=== PATIENT | female | born 1985 | race Caucasian/White ===

== ENCOUNTER 2021-08-08 11:12 | Observation (INO) ==
[2021-08-08] MEDS ORDERED: Ipratropium/Albuterol Neb 3 ML IH ONE (11:23)
[2021-08-08 12:01] LABS: Basophils % 0.6 %; Eosinophils # 0.3 K/mcL (0.0-0.6); Eosinophils % 4.5 %; Hemoglobin 15.5 g/dL (11.5-15.4); Immature Granulocytes % 0.6 % (0-4); Lymphocytes # 1.8 K/mcL (0.6-4.6); Lymphocytes % 26.7 %; Mean Corpuscular HGB Conc 33.7 g/dL (31.6-35.5); Mean Corpuscular Hemoglobin 30.3 pg (28.0-33.3); Mean Corpuscular Volume 89.8 fL (83.0-100.0); Mean Platelet Volume 9.7 fL (9.4-12.4); Monocytes # 0.6 K/mcL (0.0-1.3); Monocytes % 8.3 %; Platelet Count 258 K/mcL (140-400); Red Blood Count 5.12 M/mcL (3.82-4.97); Red Cell Distribution Width 12.3 % (11.5-14.5); Segmented Neutrophils % 59.3 %; White Blood Count 6.7 K/mcL (4.3-11.1)
[2021-08-08] MEDS ORDERED: 0.9 % Sodium Chloride 1,000 ML IV ONE (12:10)
[2021-08-08 12:23] LABS: Alanine Aminotransferase 75 Units/L (7-52); Albumin/Globulin Ratio 1.2 (1.1-2.2); Alkaline Phosphatase 86 Units/L (34-104); Aspartate Amino Transferase 50 Units/L (13-39); BUN/Creatinine Ratio 17 (6-26); Bilirubin,Direct 0.2 mg/dL (0.0-0.2); Bilirubin,Indirect 0.4 mg/dL (0.0-1.0); Bilirubin,Total 0.6 mg/dL (0.3-1.0); Blood Urea Nitrogen 9 mg/dL (6-20); Calcium 9.4 mg/dL (8.6-10.3); Carbon Dioxide 28 mEq/L (23-29); Chloride 98 mEq/L (98-107); Globulin 3.4 g/dL (2.4-3.5); Glucose 269 mg/dL (70-105); Osmolality,Calculated 286 (280-300); Sodium 134 mEq/L (136-145); Total Protein 7.4 g/dL (6.4-8.9); Troponin I < 0.03 ng/mL (< 0.04); eGFR For African Americans > 60 (> 60); eGFR For Non-African Americans > 60 (> 60)
[2021-08-08 12:52] LABS: Adenovirus Not Detected (Not Detect); Bordetella Pertussis Not Detected (Not Detect); Chlamydophila pneumoniae Not Detected (Not Detect); Coronavirus 229E Not Detected (Not Detect); Coronavirus HKU1 Not Detected (Not Detect); Coronavirus NL63 Not Detected (Not Detect); Coronavirus OC43 Not Detected (Not Detect); Human Metapneumovirus Not Detected (Not Detect); Human Rhinovirus/Enterovirus DETECTED (Not Detect); Influenza A Subtype 2009 H1 Not Detected (Not Detect); Influenza B Not Detected (Not Detect); Mycoplasma pneumoniae Not Detected (Not Detect); Parainfluenza Virus 1 Not Detected (Not Detect); Parainfluenza Virus 2 Not Detected (Not Detect); Parainfluenza Virus 3 Not Detected (Not Detect); Parainfluenza Virus 4 Not Detected (Not Detect); Respiratory Syncytial Virus Not Detected (Not Detect); SARS-CoV-2 Not Detected (Not Detect)
[2021-08-08] MEDS ORDERED: Ketorolac 30 MG/ML VIAL IVP ONE (12:52)
[2021-08-08] MEDS ORDERED: Ondansetron 4 MG/2 ML VIAL IVP ONE (12:52)
[2021-08-08] MEDS ORDERED: Benzonatate 100 MG CAPSULE PO PRN (17:08)
[2021-08-08] MEDS ORDERED: Ibuprofen 600 MG TABLET PO PRN (17:08)
[2021-08-08] MEDS ORDERED: Melatonin 3 MG TABLET PO PRN (17:09)
[2021-08-08] MEDS ORDERED: Ondansetron 4 MG/2 ML VIAL IVP PRN (17:09)
[2021-08-08] MEDS ORDERED: Naloxone 0.4 MG/ML INJ IVP PRN (17:09)
[2021-08-08] MEDS ORDERED: *HR* Dextrose 50 % in Water (Syg) 50 ML SYRINGE IVP PRN (17:11)
[2021-08-08] MEDS ORDERED: Saline Nasal Spray 44 ML BOTTLE NS PRN (17:11)
[2021-08-08] MEDS ORDERED: D5% in Water 1,000 ML IVC PRN (17:11)
[2021-08-08] MEDS ORDERED: Dextrose Gel 15 GM/37.5 ML TUBE PO PRN ×2 (17:11)
[2021-08-08] MEDS ORDERED: Ipratropium/Albuterol Neb 3 ML IH SCH (17:15)
[2021-08-08] MEDS ORDERED: Chloraseptic Spray 177 ML BOTTLE MM PRN (17:27)
[2021-08-08] MEDS: Levalbuterol Neb 0.63 MG/3 ML IH SCH ×2 (17:30→22:41)
[2021-08-08] MEDS ORDERED: Acetaminophen/Aspirin/Caffeine TABLET PO PRN (17:39)
[2021-08-08] MEDS: MethylPREDNISolone 40 MG/ML VIAL IVP SCH (18:32)
[2021-08-08] MEDS: Nicotine 21 MG PATCH.TD24 TD SCH (18:33)
[2021-08-08] MEDS: Ipratropium Neb 0.5 MG NEBULIZER IH PRN (20:30)
[2021-08-08] MEDS: Sucralfate 1 GM TABLET PO SCH (20:40)
[2021-08-08] MEDS ORDERED: Insulin LISPRO 300 UNITS/3 ML VIAL SUBQ SCH (21:00)
[2021-08-09] MEDS: Ipratropium Neb 0.5 MG NEBULIZER IH PRN (01:49)
[2021-08-09 02:06] LABS: BUN/Creatinine Ratio 22 (6-26); Blood Urea Nitrogen 13 mg/dL (6-20); Calcium 9.3 mg/dL (8.6-10.3); Carbon Dioxide 25 mEq/L (23-29); Chloride 99 mEq/L (98-107); Glucose 389 mg/dL (70-105); Magnesium 1.8 mg/dL (1.6-2.6); Osmolality,Calculated 292 (280-300); Potassium 4.9 mEq/L (3.5-5.1); Sodium 133 mEq/L (136-145); eGFR For African Americans > 60 (> 60); eGFR For Non-African Americans > 60 (> 60)
[2021-08-09 03:07] LABS: Estimated Average Glucose 232 mg/dl; Hemoglobin A1C 9.7 %
[2021-08-09 03:16] VITALS: PULSE 54
[2021-08-09] MEDS: Levalbuterol Neb 0.63 MG/3 ML IH SCH ×2 (04:22→10:08)
[2021-08-09] MEDS: MethylPREDNISolone 40 MG/ML VIAL IVP SCH (05:08)
[2021-08-09 07:20] VITALS: BP 106/63; TEMP 98.4
[2021-08-09] MEDS: Sucralfate 1 GM TABLET PO SCH (07:46)
[2021-08-09] MEDS: Insulin LISPRO 300 UNITS/3 ML VIAL SUBQ SCH ×2 (07:50→13:02)
[2021-08-09] MEDS ORDERED: Fluticasone Propionate Nasal 50 MCG/SPRAY BOTTLE NS SCH (09:00)
[2021-08-09] MEDS ORDERED: Aspirin Enteric Coated 81 MG Tablet PO SCH (09:00)
[2021-08-09 10:13] VITALS: O2SAT 92
[2021-08-09] MEDS: Nicotine 21 MG PATCH.TD24 TD SCH (10:25)
== END 2021-08-09 13:36 | disposition left against medical advice (07) ==
LOC: 3NENU 11:12 → EMEROOARM 11:12 → SUATTDRO 17:11 → 3NENU 18:06
PROVIDERS: ADMIT Internal Medicine; ATTEND Hospitalist

== ENCOUNTER 2021-08-23 23:21 | Inpatient (IN) ==
[2021-08-23] MEDS: *HR* Dextrose 50 % in Water (Syg) 50 ML SYRINGE IVP ONE ×2 (23:45→23:46)
[2021-08-23] MEDS: D10% in Water 500 ML IVC SCH (23:46)
[2021-08-24 00:07] LABS: VBG HCO3 27 mEq/L (21-27); VBG PCO2 46 mmHg (41-51); VBG PH 7.37 pH Units (7.32-7.42); VBG PO2 71 mmHg (25-50)
[2021-08-24] MEDS: 0.9 % Sodium Chloride 1,000 ML IVC ONE ×2 (00:08→00:39)
[2021-08-24 00:16] LABS: ABG Base Excess 0 mEq/L (-2 to 3); ABG HCO3 23 mEq/L (21-27); ABG Oxygen Saturation 92 % (95-98); ABG PCO2 34 mmHg (35-45); ABG PH 7.44 pH Units (7.32-7.45); ABG PO2 59 mmHg (85-104); ABG TCO2 24 mEq/L (20-26)
[2021-08-24 00:19] LABS: Basophils # 0.1 K/mcL (0.0-0.2); Basophils % 0.6 %; Eosinophils # 0.3 K/mcL (0.0-0.6); Eosinophils % 4.1 %; Hematocrit 50.1 % (35.3-44.9); Hemoglobin 16.7 g/dL (11.5-15.4); Immature Granulocytes % 0.6 % (0-4); Lymphocytes # 2.6 K/mcL (0.6-4.6); Mean Corpuscular HGB Conc 33.3 g/dL (31.6-35.5); Mean Corpuscular Volume 90.1 fL (83.0-100.0); Mean Platelet Volume 9.4 fL (9.4-12.4); Monocytes # 0.2 K/mcL (0.0-1.3); Monocytes % 2.9 %; Platelet Count 328 K/mcL (140-400); Red Blood Count 5.56 M/mcL (3.82-4.97); Red Cell Distribution Width 12.7 % (11.5-14.5); Segmented Neutrophils % 60.8 %; White Blood Count 8.3 K/mcL (4.3-11.1)
[2021-08-24] MEDS ORDERED: *HR* Dextrose 50 % in Water (Syg) 50 ML SYRINGE IVP ONE (00:19)
[2021-08-24] MEDS ORDERED: *HR* Dextrose 50 % in Water (Syg) 50 ML SYRINGE ONE ×6 (00:21→02:16)
[2021-08-24] MEDS: *HR* Dextrose 50 % in Water (Syg) 50 ML SYRINGE IVP ONE ×2 (00:41→01:12)
[2021-08-24] MEDS ORDERED: 0.9 % Sodium Chloride 1,000 ML IVC ONE (00:45)
[2021-08-24 01:01] LABS: Acetaminophen < 10 mcg/mL (10-20); Alanine Aminotransferase 85 Units/L (7-52); Albumin/Globulin Ratio 1.1 (1.1-2.2); Alkaline Phosphatase 78 Units/L (34-104); Aspartate Amino Transferase 38 Units/L (13-39); BUN/Creatinine Ratio 14 (6-26); Bilirubin,Total 0.7 mg/dL (0.3-1.0); Blood Urea Nitrogen 8 mg/dL (6-20); Calcium 9.5 mg/dL (8.6-10.3); Carbon Dioxide 26 mEq/L (23-29); Chloride 102 mEq/L (98-107); Creatine Kinase 73 Units/L (30-223); Ethanol < 10 mg/dL (Less than 10); Globulin 3.7 g/dL (2.4-3.5); Glucose 148 mg/dL (70-105); Magnesium 1.8 mg/dL (1.6-2.6); Osmolality,Calculated 285 (280-300); Potassium 3.5 mEq/L (3.5-5.1); Salicylate < 2.5 mg/dL (15.0-30.0); Sodium 137 mEq/L (136-145); Thyroid Stimulating Hormone 3.586 mcIU/mL (0.340-5.600); Total Protein 7.7 g/dL (6.4-8.9); Troponin I < 0.03 ng/mL (< 0.04); eGFR For African Americans > 60 (> 60); eGFR For Non-African Americans > 60 (> 60)
[2021-08-24 01:26] LABS: ABG Base Excess 0 mEq/L (-2 to 3); ABG HCO3 25 mEq/L (21-27); ABG Oxygen Saturation 78 % (95-98); ABG PCO2 42 mmHg (35-45); ABG PH 7.38 pH Units (7.32-7.45); ABG PO2 43 mmHg (85-104); ABG TCO2 26 mEq/L (20-26)
[2021-08-24] MEDS ORDERED: Naloxone 0.4 MG/ML INJ IVP PRN (01:48)
[2021-08-24] MEDS: D10% in Water 500 ML IVC SCH ×10 (01:58→22:10)
[2021-08-24] MEDS ORDERED: D5% in Water 1,000 ML IVC ONE (02:56)
[2021-08-24] MEDS ORDERED: Ondansetron 4 MG/2 ML VIAL ONE (02:56)
[2021-08-24] MEDS: D5% in Water 1,000 ML IVC SCH ×2 (02:58→06:38)
[2021-08-24] MEDS: Ondansetron 4 MG/2 ML VIAL IVP PRN ×4 (03:08→21:09)
[2021-08-24] MEDS ORDERED: *HR* Dextrose 50 % in Water (Syg) 50 ML SYRINGE IVP STA (03:11)
[2021-08-24] MEDS: *HR* Dextrose 50 % in Water (Syg) 50 ML SYRINGE IVP PRN ×12 (03:48→12:15)
[2021-08-24 04:42] LABS: ABG Base Excess -3 mEq/L (-2 to 3); ABG HCO3 24 mEq/L (21-27); ABG Oxygen Saturation 100 % (95-98); ABG PCO2 48 mmHg (35-45); ABG PH 7.31 pH Units (7.32-7.45); ABG PO2 187 mmHg (85-104); ABG TCO2 26 mEq/L (20-26)
[2021-08-24] MEDS: *HR* Heparin 5,000 UNIT/ML VIAL SQ SCH ×3 (05:52→21:37)
[2021-08-24 06:58] LABS: Bilirubin,Urine Negative (Negative); Blood,Urine Negative (Negative); Clarity,Urine Clear (Clear); Color,Urine Light-Yellow (Yellow); Glucose,Urine (UA) 500 mg/dL (Normal); Ketones,Urine Negative (Negative); Leukocyte Esterase,Urine Negative (Negative); Mucus,Urine Few per lpf (None-Few); Nitrite,Urine Negative (Negative); Protein,Urine Negative (Neg-Trace); RBC,Urine 0-3 per hpf (0-3); Specific Gravity,Urine 1.009 (1.010-1.025); Squamous Epithelial Cell,Urine Few per hpf (None-Few); Urobilinogen,Urine Normal (Normal); WBC,Urine 0-3 per hpf (0-3)
[2021-08-24 10:15] LABS: Hematocrit 48.6 % (35.3-44.9); Hemoglobin 15.7 g/dL (11.5-15.4); Mean Corpuscular HGB Conc 32.3 g/dL (31.6-35.5); Mean Corpuscular Hemoglobin 30.2 pg (28.0-33.3); Mean Corpuscular Volume 93.5 fL (83.0-100.0); Mean Platelet Volume 9.6 fL (9.4-12.4); Platelet Count 269 K/mcL (140-400); Red Cell Distribution Width 13.2 % (11.5-14.5)
[2021-08-24 10:17] LABS: White Blood Count 19.4 K/mcL (4.3-11.1)
[2021-08-24] MEDS ORDERED: *HR* Dextrose 50 % in Water (Vial) 50 ML VIAL IVP PRN (10:30)
[2021-08-24 10:31] LABS: ABG Base Excess -2 mEq/L (-2 to 3); ABG HCO3 22 mEq/L (21-27); ABG Oxygen Saturation 99 % (95-98); ABG PCO2 36 mmHg (35-45); ABG PH 7.39 pH Units (7.32-7.45); ABG PO2 154 mmHg (85-104); ABG TCO2 23 mEq/L (20-26)
[2021-08-24 10:49] LABS: Albumin 3.3 g/dL (3.5-5.7); Albumin/Globulin Ratio 1.1 (1.1-2.2); Bilirubin,Direct 0.2 mg/dL (0.0-0.2); Bilirubin,Indirect 0.6 mg/dL (0.0-1.0); Bilirubin,Total 0.8 mg/dL (0.3-1.0); Calcium 8.1 mg/dL (8.6-10.3); Potassium 4.3 mEq/L (3.5-5.1); Total Protein 6.3 g/dL (6.4-8.9)
[2021-08-24] MEDS ORDERED: Morphine Sulfate 2 MG/ML SYRINGE IVP ONE (21:23)
[2021-08-24 23:29] LABS: Sodium, Urine 50.2 mEq/L
[2021-08-24 23:37] LABS: Amphetamine Screen,Urine Negative ng/mL (Cutoff=1000); Barbiturate Screen,Urine Negative ng/mL (Cutoff=200); Benzodiazepines Screen,Urine Positive ng/mL (Cutoff=200); Cannabinoid Screen,Urine Negative ng/mL (Cutoff = 50); Cocaine Screen,Urine Negative ng/mL (Cutoff= 300); Opiate Screen,Urine Negative ng/mL (Cutoff=300); Phencyclidine Screen,Urine Negative ng/mL (Cutoff=25)
[2021-08-25] MEDS: D10% in Water 500 ML IVC SCH ×3 (00:05→04:07)
[2021-08-25 02:57] LABS: Basophils # 0.1 K/mcL (0.0-0.2); Basophils % 0.6 %; Eosinophils # 0.6 K/mcL (0.0-0.6); Eosinophils % 3.5 %; Hematocrit 44.1 % (35.3-44.9); Hemoglobin 14.5 g/dL (11.5-15.4); Immature Granulocytes % 1.3 % (0-4); Lymphocytes # 3.1 K/mcL (0.6-4.6); Lymphocytes % 19.5 %; Mean Corpuscular HGB Conc 32.9 g/dL (31.6-35.5); Mean Corpuscular Volume 91.1 fL (83.0-100.0); Mean Platelet Volume 9.6 fL (9.4-12.4); Monocytes # 1.1 K/mcL (0.0-1.3); Neutrophils # 10.8 K/mcL (1.6-8.9); Platelet Count 256 K/mcL (140-400); Red Blood Count 4.84 M/mcL (3.82-4.97); Red Cell Distribution Width 13.2 % (11.5-14.5); Segmented Neutrophils % 68.1 %; White Blood Count 15.8 K/mcL (4.3-11.1)
[2021-08-25 04:06] LABS: Albumin 2.9 g/dL (3.5-5.7); Albumin/Globulin Ratio 1.1 (1.1-2.2); Bilirubin,Total 0.7 mg/dL (0.3-1.0); Calcium 7.4 mg/dL (8.6-10.3); Globulin 2.7 g/dL (2.4-3.5); Magnesium 1.2 mg/dL (1.6-2.6); Potassium 3.7 mEq/L (3.5-5.1); Total Protein 5.6 g/dL (6.4-8.9)
[2021-08-25] MEDS ORDERED: D5% in 0.45% NACL 1,000 ML IVC SCH (05:30)
[2021-08-25] MEDS: *HR* Heparin 5,000 UNIT/ML VIAL SQ SCH ×3 (05:35→20:44)
[2021-08-25] MEDS: Calcium Gluconate 1gm/50mL 1 GM/50 ML BAG IVPB SCH ×2 (08:14→09:34)
[2021-08-25] MEDS: Ondansetron 4 MG/2 ML VIAL IVP PRN (09:49)
[2021-08-25 10:53] LABS: Calcium 8.2 mg/dL (8.6-10.3); Potassium 4.2 mEq/L (3.5-5.1)
[2021-08-25] MEDS: Ipratropium/Albuterol Neb 3 ML IH SCH ×3 (11:06→22:58)
[2021-08-25] MEDS ORDERED: Dextrose Gel 15 GM/37.5 ML TUBE PO PRN ×2 (11:10)
[2021-08-25] MEDS ORDERED: *HR* Dextrose 50 % in Water (Syg) 50 ML SYRINGE IVP PRN (11:10)
[2021-08-25] MEDS ORDERED: D5% in Water 1,000 ML IVC PRN (11:10)
[2021-08-25] MEDS: D5% in 0.9% NACL 1,000 ML IVC SCH (12:22)
[2021-08-25 17:07] LABS: Calcium 8.5 mg/dL (8.6-10.3); Potassium 4.7 mEq/L (3.5-5.1)
[2021-08-25] MEDS ORDERED: 0.9 % Sodium Chloride 1,000 ML IVC ONE (19:17)
[2021-08-25] MEDS ORDERED: Perflutren Lipid Microsphere 1.3 ML in 0.9 % Sodium Chloride 8.7 ML IVP PRN (21:14)
[2021-08-25 21:24] LABS: Calcium 7.8 mg/dL (8.6-10.3); Potassium 3.9 mEq/L (3.5-5.1)
[2021-08-26 03:00] LABS: Hematocrit 42.3 % (35.3-44.9); Hemoglobin 14.4 g/dL (11.5-15.4); Mean Corpuscular Hemoglobin 30.4 pg (28.0-33.3); Mean Corpuscular Volume 89.2 fL (83.0-100.0); Mean Platelet Volume 9.6 fL (9.4-12.4); Platelet Count 241 K/mcL (140-400); Red Blood Count 4.74 M/mcL (3.82-4.97); White Blood Count 11.8 K/mcL (4.3-11.1)
[2021-08-26 03:26] LABS: Calcium 8.4 mg/dL (8.6-10.3); Magnesium 1.5 mg/dL (1.6-2.6); Potassium 3.9 mEq/L (3.5-5.1)
[2021-08-26] MEDS: Ipratropium/Albuterol Neb 3 ML IH SCH ×4 (03:52→21:24)
[2021-08-26] MEDS: *HR* Heparin 5,000 UNIT/ML VIAL SQ SCH ×3 (05:07→22:04)
[2021-08-26] MEDS ORDERED: Insulin DETEMIR 100 UNIT/ML X5UNITS SUBQ SCH ×2 (05:15→21:00)
[2021-08-26] MEDS: Insulin LISPRO 300 UNITS/3 ML VIAL SUBQ SCH ×3 (08:11→15:52)
[2021-08-26] MEDS: D5% in 0.9% NACL 1,000 ML IVC SCH (08:13)
[2021-08-26] MEDS: Ondansetron 4 MG/2 ML VIAL IVP PRN (09:38)
[2021-08-26] MEDS ORDERED: Dextrose Gel 15 GM/37.5 ML TUBE PO PRN ×4 (11:49→11:58)
[2021-08-26] MEDS ORDERED: Naloxone 0.4 MG/ML INJ IVP PRN (11:49)
[2021-08-26] MEDS ORDERED: Ondansetron 4 MG/2 ML VIAL IVP PRN (11:49)
[2021-08-26] MEDS ORDERED: *HR* Dextrose 50 % in Water (Syg) 50 ML SYRINGE IVP PRN ×2 (11:49→11:58)
[2021-08-26] MEDS ORDERED: ALPRAZolam 1 MG TABLET PO ONE (15:45)
[2021-08-26] MEDS ORDERED: Melatonin 3 MG TABLET PO ONE (21:18)
[2021-08-27 03:29] LABS: Basophils # 0.1 K/mcL (0.0-0.2); Basophils % 0.6 %; Eosinophils # 0.4 K/mcL (0.0-0.6); Eosinophils % 4.9 %; Hematocrit 44.2 % (35.3-44.9); Hemoglobin 15.1 g/dL (11.5-15.4); Immature Granulocytes % 0.9 % (0-4); Lymphocytes # 2.7 K/mcL (0.6-4.6); Lymphocytes % 30.6 %; Mean Corpuscular HGB Conc 34.2 g/dL (31.6-35.5); Mean Corpuscular Volume 87.7 fL (83.0-100.0); Mean Platelet Volume 9.7 fL (9.4-12.4); Monocytes # 0.7 K/mcL (0.0-1.3); Monocytes % 8.1 %; Neutrophils # 4.8 K/mcL (1.6-8.9); Platelet Count 244 K/mcL (140-400); Red Blood Count 5.04 M/mcL (3.82-4.97); Red Cell Distribution Width 12.9 % (11.5-14.5); Segmented Neutrophils % 54.9 %; White Blood Count 8.7 K/mcL (4.3-11.1)
[2021-08-27 03:50] LABS: Calcium 9.5 mg/dL (8.6-10.3); Potassium 4.1 mEq/L (3.5-5.1)
[2021-08-27] MEDS: Ipratropium/Albuterol Neb 3 ML IH SCH ×3 (04:08→15:53)
[2021-08-27] MEDS: *HR* Heparin 5,000 UNIT/ML VIAL SQ SCH ×3 (06:10→21:31)
[2021-08-27] MEDS: Insulin LISPRO 300 UNITS/3 ML VIAL SUBQ SCH ×3 (08:31→17:22)
[2021-08-27] MEDS ORDERED: Aspirin Enteric Coated 81 MG Tablet PO SCH (09:00)
[2021-08-27] MEDS ORDERED: ALPRAZolam 1 MG TABLET PO SCH (09:00)
[2021-08-27] MEDS ORDERED: *HR* LORazepam 1 MG TABLET PO PRN (14:46)
[2021-08-27] MEDS ORDERED: Haloperidol Lactate 5 MG/ML VIAL IM PRN (14:59)
[2021-08-27 17:09] LABS: Influenza A PCR Negative (Negative); Influenza B PCR Negative (Negative); Resp. Syncytial Virus PCR Negative (Negative); SARS-CoV-2 by PCR (In House) Negative (Negative)
[2021-08-27 18:08] VITALS: BP 104/71; PULSE 97; TEMP 97.7; O2SAT 97
[2021-08-27] MEDS ORDERED: Insulin DETEMIR 100 UNIT/ML X5UNITS SUBQ SCH (21:00)
== END 2021-08-27 22:46 | DRG 817 ==
LOC: ICNU 23:21 → EMEROOARM 23:21 → SUATTDRO 08-24 01:48 → ICNU 08-24 02:20 → 3ANU 08-26 18:04
PROVIDERS: ADMIT Internal Medicine; ATTEND Internal Medicine